=== PATIENT | female | born 1955 ===

== ENCOUNTER 2022-02-13 14:19 | Outpatient (CLI) | payer MEDICARE, BC ==
[~2022-02-13 14:19] MED LIST: Magnevist 469MG/ML 20 ML VIAL ONE
== END 2022-02-13 14:20 | disposition home or self-care (01) ==
LOC: CSHMRI 14:19
PROVIDERS: ATTEND Otolaryngology
DX: H90.3 Sensorineural hearing loss, bilateral (principal); I67.9 Cerebrovascular disease, unspecified
CPT/HCPCS: 70553; 82565